=== PATIENT | female | born 1975 | race Caucasian/White ===

== ENCOUNTER 2020-01-02 21:34 | Emergency (ER) | payer OTHER ==
[~2020-01-02] VITALS: Ht 177.8 cm; Wt 64.4 kg
[2020-01-02 21:55] VITALS: BP 99/62
--- NOTE | 2020-01-02 21:58 | NUR ---
TO LOBBY A/W BED AMBULATORY
--- NOTE | 2020-01-02 22:11 | NUR ---
EKG PERFORMED IN TRIAGE ROOM WITH SPOUSE AND TRIAGE NURSE PRESENT
--- NOTE | 2020-01-02 22:15 | NUR ---
PT AMBULATED TO BED 12 WITH SPOUSE
--- NOTE | 2020-01-02 22:25 | NUR ---
PT ASSESSMENT COMPLETE. PT ATTACHED TO MONITORING SYSTM. WILL CONTINUE TO MONITOR.
[2020-01-02] MEDS ORDERED: KETOROLAC 30 MG/ML VIAL IM ONE (23:10)
--- NOTE | 2020-01-02 23:48 | NUR ---
PT REPORTS COUGH X2 WEEKS. INTENSE COUGH THAT CAUSES VOMITTING. NO EPISODES AT THIS TIME. ERMD MADE AWARE.
[2020-01-03 00:27] VITALS: BP 95/63
--- NOTE | 2020-01-03 00:28 | NUR ---
Patient discharged with v/s stable. Written and verbal after care instructions given and explained. Patient alert, oriented and verbalized understanding of instructions. Ambulatory with steady gait. All questions addressed prior to discharge. ID band removed. Patient advised to follow up with PMD. Rx of PHENERGAN W CODEINE, ALBUTEROL given. Patient educated on indication of medication including possible reaction and side effects. Opportunity to ask questions provided and answered.
== END 2020-01-03 00:28 | disposition home or self-care (01) ==
LOC: MED 21:34
DX: R07.89 Other chest pain (principal); F32.9 Major depressive disorder, single episode, unspecified; F43.10 Post-traumatic stress disorder, unspecified; Z98.84 Bariatric surgery status
CPT/HCPCS: 71045; 81025; 93005; 96372; 99284; J1885; Q0092